=== PATIENT | female | born 1960 | race Caucasian/White ===

== ENCOUNTER 2017-08-10 10:34 | Emergency (ER) | payer BC ==
[~2017-08-10] VITALS: Ht 167.6 cm; Wt 75.3 kg
--- NOTE | ~2017-08-10 | CR72 ---
[facility] A Service of [facility] RADIOLOGY TEXT RESULTS PATIENT: JEREMY BOYLE LOCATION: [facility] : 62 UNIT #: [id number] AGE: [address]: JAMES YODER SEX: F ORDER DR: [id number] [facility] [address] [place], [place] [address] [id number] E MR#: [id number] Acc #: [id number] NAME: JEREMY BOYLE : 1960 SEX: F STUDY DATE/TIME: 08/10/2017 12:13 UNIT: [facility] ROOM: STUDY DESCRIPTION: CR Chest Single View Portable Attending Physician: James Yoder Aprn Ordering Physician: James Yoder Aprn Primary Care Physician: Primary Care Physician No MEDICAL IMAGING REPORT This report is preliminary unless electronic signature is present EXAM Portable chest radiograph INDICATIONS Cough and congestion for 3 days. FINDINGS. Comparison made to prior exam from 01/12/2017. Cardiomegaly is identified although I do not see any evidence of vascular congestion. Patient is noted to have some patchy infiltrates within the left lung and probably some additional patchy consolidation within the right infrahilar region, no pneumothorax or pleural effusion is seen, I would suggest short-term followup to document resolution of the infiltrates Dictated by... Kassie Lam M.D. THIS IS AN ELECTRONICALLY VERIFIED REPORT Kassie Lam M.D. at 08/12/2017 8:32 AM AFF/rnr TD: 08/11/2017 06:32 JOB #: [id number] MEDICAL IMAGING REPORT Page 1 of 1 COPY
[~2017-08-10 10:34] MED LIST: ASPIRINEC PO; IBUPROFEN PO; NORVASC PO; PRINIVIL20 M1 PO; SYNTHROID75 MCG PO
== END 2017-08-10 13:21 | disposition home or self-care (01) ==
LOC: CED 10:34 → CFTX 10:34
DX: J18.9 Pneumonia, unspecified organism (principal); I10 Essential (primary) hypertension; E07.9 Disorder of thyroid, unspecified; F17.210 Nicotine dependence, cigarettes, uncomplicated; Z98.890 Other specified postprocedural states; Z79.899 Other long term (current) drug therapy
CPT/HCPCS: 71010; 94640; 99283

== ENCOUNTER 2017-08-14 12:41 | Emergency (ER) | payer BC ==
[~2017-08-14] VITALS: Ht 167.6 cm; Wt 74.4 kg
--- NOTE | ~2017-08-14 | CR72 ---
[facility] A Service of [facility] RADIOLOGY TEXT RESULTS PATIENT: JEREMY BOYLE LOCATION: [facility] : 62 UNIT #: [id number] AGE: [address]: Liu Guajardo MD SEX: F ORDER DR: [id number] [facility] [address] [place], [place] [address] [id number] E MR#: [id number] Acc #: [id number] NAME: JEREMY BOYLE : 1960 SEX: F STUDY DATE/TIME: 08/14/2017 13:37 UNIT: [facility] ROOM: STUDY DESCRIPTION: CR Chest Single View Portable Attending Physician: Liu Guajardo M.D. Ordering Physician: Ed Anthony Monsalve M.D. Primary Care Physician: Generic Doctor MEDICAL IMAGING REPORT This report is preliminary unless electronic signature is present EXAMINATION AP view of the chest. COMPARISON August 10, 2017, and February 14, 2008. INDICATIONS 56-year-old female with dyspnea for 5 days. Recent diagnosis of pneumonia. History of hypertension. FINDINGS Cardiomediastinal silhouette is within normal limits. No evidence of pneumothorax. Attenuation in the left lateral costophrenic sulcus is stable from February 14, 2008, most consistent with pericardial fat pad. Opacities previously described 4 days ago of the left lung are no longer seen. No current evidence of pneumonia. IMPRESSION No acute airspace disease. Opacities previously described in the left lung from four days ago are no longer seen. No current evidence of pneumonia. Normal heart size. Dictated by... Gerhard Gonzalez M.D. THIS IS AN ELECTRONICALLY VERIFIED REPORT Gerhard Gonzalez M.D. at 08/19/2017 6:11 PM FRANCESCA/jaclyn TD: 08/14/2017 18:34 JOB #: [id number] [facility] A Service of [facility] RADIOLOGY TEXT RESULTS PATIENT: JEREMY BOYLE LOCATION: [facility] : 62 UNIT #: [id number] AGE: [address]: Liu Guajardo MD SEX: F ORDER DR: MEDICAL IMAGING REPORT Page 1 of 1 COPY
--- NOTE | ~2017-08-14 | EKG ---
PATIENT: JEREMY BOYLE UNIT #: [id number] Ventricular Rate: 80 BPM Atrial Rate: 79 BPM QRS Duration: 68 ms Q-T Interval: 344 ms QTC Calculation(Bezet): 396 ms Calculated R Sarepta: 31 degrees Calculated T Sarepta: 48 degrees Diagnosis Line: Normal sinus rhythm Diagnosis Line: Normal ECG Diagnosis Line: No previous ECGs available Diagnosis Line: Confirmed by FERMIN MICHAUD MD ([id number]) on 08/15/2017 Diagnosis Line: 3:43:58 PM INTERPRETING MD: KEILY GRIFFIN
[2017-08-14 14:05] LABS: POC - CKMB 1.8 ng/mL (0.0-7.9); POC - TROPONIN <0.05 ng/mL (<=0.05)
[2017-08-14 14:08] LABS: BUN/CREATININE RATIO 28.18; CALCIUM SERUM 9.3 mg/dL (8.4-10.2); CREATININE SERUM 1.1 mg/dL (0.6-1.4); GLOM FILT RATE Estimated 56.5 mL/min (>60); POTASSIUM 5.3 mmol/L (3.5-5.1)
[2017-08-14 14:17] LABS: BASOPHIL% 0.2 % (0-2.5); HEMATOCRIT 42.2 % (35.0-45.0); LYMPHOCYTE# 0.5 X10e3 (1.0-3.5); LYMPHOCYTE% 5.6 % (17.0-45.0); MEAN CELL VOLUME 98.3 FL (83-96); MEAN CORPUSCULAR HEMOGLOBIN 32.6 PG (28-34); MEAN CORPUSCULAR HGB CONC 33.2 g/dL (30-36); MEAN PLATELET VOLUME 7.3 FL (6.5-11.5); MONOCYTE# 0.1 X10e3 (0-1.0); MONOCYTE% 1.6 % (3.0-12.0); NEUTROPHIL# 7.8 X10e3 (1.5-7.1); NEUTROPHIL% 92.6 % (40-75); PLATELET COUNT 311 X10e3 (140-420); RED CELL DISTRIBUTION WIDTH 13.9 % (11.0-15.5); WHITE BLOOD COUNT 8.5 X10e3 (4.0-10.5)
[2017-08-14 14:21] LABS: DIFF IND NO
== END 2017-08-14 18:14 | disposition home or self-care (01) ==
LOC: CED 12:41
PROVIDERS: Emergency Medicine
DX: J44.1 Chronic obstructive pulmonary disease with (acute) exacerbation (principal); E87.5 Hyperkalemia; E87.1 Hypo-osmolality and hyponatremia; E86.0 Dehydration; I10 Essential (primary) hypertension; E03.9 Hypothyroidism, unspecified; F17.210 Nicotine dependence, cigarettes, uncomplicated; Z79.899 Other long term (current) drug therapy
CPT/HCPCS: 36415; 71010; 80048; 82553; 83880; 84484; 85025; 87040; 93005; 94640; 96365; 96375; 99285; J0696; J2930